=== PATIENT | male | born 1975 | race Caucasian/White ===

== ENCOUNTER → 2017-04-13 | Outpatient (CLI) | payer OTHER ==
[2017-04-13 08:19] LABS: ALBUMIN 4.4 g/dL (3.5-5.0); BUN/CREATININE RATIO 17.6 (6.0-26.0); POTASSIUM 4.2 mmol/L (3.6-5.0); TOTAL BILIRUBIN 0.6 mg/dL (0.2-1.3); TOTAL PROTEIN 7.4 g/dL (6.3-8.2)
== END ==
LOC: LAB 07:18
PROVIDERS: Family Medicine
DX: E11.9 Type 2 diabetes mellitus without complications (principal); E78.5 Hyperlipidemia, unspecified

== ENCOUNTER → 2017-12-20 | Outpatient (CLI) | payer OTHER ==
[2017-12-20 16:03] LABS: ALBUMIN 4.2 g/dL (3.5-5.0); BUN/CREATININE RATIO 18.6 (6.0-26.0); CALCIUM 9.1 mg/dL (8.4-10.2); TOTAL BILIRUBIN 0.3 mg/dL (0.2-1.3); TOTAL PROTEIN 7.2 g/dL (6.3-8.2)
[2017-12-20 16:07] LABS: HEMOGLOBIN 15.1 g/dL (13.5-18.0); MEAN CELL VOLUME 89 fl (78-100); MEAN CORPUSCULAR HEMOGLOBIN 29 pg (27-31); MEAN CORPUSCULAR HGB CONC 32 g/dL (33-37); PLATELET COUNT 243 K/mm3 (130-400); RED BLOOD COUNT 5.29 M/mm3 (4.20-5.60); RED CELL DISTRIBUTION WIDTH 13.8 % (11.5-14.5); WHITE BLOOD COUNT 4.5 K/mm3 (4.8-10.8)
[2017-12-20 17:30] LABS: MEAN PLATELET VOLUME 12.1 fl (7.4-10.4)
[2017-12-20 17:31] LABS: NEUTROPHILS 53 % (42-75)
[2017-12-20 17:32] LABS: LYMPHOCYTE 30 % (20-51); MONOCYTE 10 % (3-10)
== END ==
LOC: LAB 07:35
PROVIDERS: Family Medicine
DX: E11.9 Type 2 diabetes mellitus without complications (principal)

== ENCOUNTER 2019-09-26 16:19 | Emergency (ER) | payer OTHER ==
[~2019-09-26] VITALS: Ht 177.8 cm; Wt 109.1 kg
[2019-09-26] MEDS ORDERED: HCTZ 25MG25 MG PO (16:28)
[2019-09-26] MEDS ORDERED: GLIMEPIRIDE4 MG PO (16:28)
[2019-09-26] MEDS ORDERED: PRAVASTATIN SOD80 MG PO (16:28)
[2019-09-26] MEDS ORDERED: FENOFIBRATE48 MG PO (16:29)
[2019-09-26] MEDS ORDERED: LISINOPRIL20 MG PO (16:29)
[2019-09-26] MEDS ORDERED: VITAMIN D310 MC1 PO (16:29)
[2019-09-26] MEDS ORDERED: PIOGLITAZONE HY45 MG PO (16:29)
[2019-09-26 18:24] VITALS: BP 156/94
== END 2019-09-26 18:33 | disposition home or self-care (01) ==
LOC: ED 16:19
DX: S51.811A Laceration without foreign body of right forearm, initial encounter (principal); S61.511A Laceration without foreign body of right wrist, initial encounter; I10 Essential (primary) hypertension; E11.9 Type 2 diabetes mellitus without complications; Z79.84 Long term (current) use of oral hypoglycemic drugs; W26.8XXA Contact with other sharp object(s), not elsewhere classified, initial encounter; Y92.009 Unspecified place in unspecified non-institutional (private) residence as the place of occurrence of the external cause

== ENCOUNTER → 2019-10-05 | Outpatient (CLI) | payer OTHER ==
[2019-09-26 18:24] VITALS: BP 156/94
[~2019-10-05] MED LIST: FENOFIBRATE48 MG PO; GLIMEPIRIDE4 MG PO; HCTZ 25MG25 MG PO; LISINOPRIL20 MG PO; PIOGLITAZONE HY45 MG PO; PRAVASTATIN SOD80 MG PO; VITAMIN D310 MC1 PO
== END ==
LOC: AMSURD 10:28
DX: Z48.02 Encounter for removal of sutures (principal)